=== PATIENT | female | born 1960 | race Caucasian/White ===

== ENCOUNTER 2020-03-30 09:11 | Observation (INO) ==
[2020-03-30 11:04] LABS: Basophils % 0.3 % (0.0-0.8); Eosinophils # 0.1 10*3/uL (0.0-0.87); Eosinophils % 0.5 % (0.00-10.9); Hematocrit 40.4 VOL% (35.7-47.0); Hemoglobin 13.3 GM/DL (12.0-16.0); Immature Granulocytes % 0.3 %; Immature Granulocytes Absolute 0.03 #; Lymphocytes # 1.6 10*3/uL (1.4-4.0); Lymphocytes % 17.9 % (21.3-54.2); Mean Corpuscular HGB Conc 32.9 GM/DL (32-36); Mean Corpuscular Volume 85.8 FL (87-102); Mean Platelet Volume 8.5 FL (9.6-12.0); Monocytes % 4.6 % (1.7-12.7); Neutrophils % 76.4 % (38.7-73.9); Platelet Count 376 T/CUMM (130-400); Red Blood Count 4.71 MC/CUMM (3.8-5.5); Red Cell Distribution Width 12.9 % (9.3-17.3); White Blood Count 9.2 T/CUMM (4-12)
[2020-03-30 11:09] LABS: Bilirubin,Urine Negative (Negative); Blood, Urine Negative (Negative); Glucose,Urine (UA) Negative (Negative); Ketones,Urine 5 mg/dL (Negative); Nitrite,Urine Negative (Negative); Protein,Urine Negative; RBC,Urine <1 /HPF (0-4); Squamous Epithelial Cell,Urine Occasional /HPF (0-10); Urine Appearance CLEAR (Clear); Urine Color Yellow (Yellow); Urine Specific Gravity 1.004 (1.001-1.035); Urine Urobilinogen < 2.0 EU/DL (0.2-1.0)
[2020-03-30 11:38] LABS: Bilirubin,Total 0.5 MG/DL (0.2-1.0); Calcium 8.6 MG/DL (8.5-10.1); Osmolality,Calculated 272.7 MOS/KG (273-304); Total Protein 7.2 G/DL (6.4-8.3)
[2020-03-30] MEDS ORDERED: ONDANSETRON 4 MG/2 ML VIAL IV PRN (13:52)
[2020-03-30] MEDS ORDERED: ACETAMINOPHEN 325 MG TABLET PO PRN (13:52)
[2020-03-30] MEDS ORDERED: DEXTROSE 50% 25 GM/50 ML VIAL IV PRN (13:52)
[2020-03-30] MEDS ORDERED: GLUCAGON 1 MG VIAL IM PRN (13:52)
[2020-03-30 14:39] LABS: PT Patient Result 11.2 SECS (9.8-11.9)
[2020-03-30 16:35] LABS: Hepatitis B Core IgM Quant < 0.05 Index; Hepatitis B Surface Ag Quant < 0.10 Index; Hepatitis B Surface Ag Result Negative (Negative); Hepatitis C Virus Ab Quant 0.03 Index; Hepatitis C Virus Ab Result Negative (Negative)
[2020-03-30 17:34] LABS: Cancer Antigen 19-9 29.6 U/ML (0-37); Carcinoembryonic Antigen < 0.5 NG/ML (0.0-5.0)
[2020-03-31 06:01] LABS: Basophils % 0.3 % (0.0-0.8); Eosinophils # 0.1 10*3/uL (0.0-0.87); Eosinophils % 1.1 % (0.00-10.9); Hematocrit 39.1 VOL% (35.7-47.0); Hemoglobin 12.6 GM/DL (12.0-16.0); Immature Granulocytes % 0.4 %; Immature Granulocytes Absolute 0.04 #; Lymphocytes # 1.7 10*3/uL (1.4-4.0); Lymphocytes % 17.1 % (21.3-54.2); Mean Corpuscular HGB Conc 32.2 GM/DL (32-36); Mean Corpuscular Volume 85.9 FL (87-102); Mean Platelet Volume 8.6 FL (9.6-12.0); Monocytes % 5.3 % (1.7-12.7); Neutrophils % 75.8 % (38.7-73.9); Platelet Count 360 T/CUMM (130-400); Red Blood Count 4.55 MC/CUMM (3.8-5.5); Red Cell Distribution Width 12.8 % (9.3-17.3); White Blood Count 9.9 T/CUMM (4-12)
[2020-03-31 06:25] LABS: Calcium 8.5 MG/DL (8.5-10.1)
[2020-03-31 06:47] LABS: Albumin 2.6 G/DL (3.4-5.0); Bilirubin,Total 0.6 MG/DL (0.2-1.0); Calcium 8.3 MG/DL (8.5-10.1); Risk Ratio 3.84; Thyroid Stimulating Hormone 1.5 uIU/ml (0.358-3.74); Total Protein 6.5 G/DL (6.4-8.3); VLDL CHOLESTEROL 18.8 MG/DL
[2020-03-31] MEDS ORDERED: ALBUMIN 25% 50 GM in PREMIX 1 EACH IV ONE (07:00)
[2020-03-31 10:32] LABS: Neutrophils,Peritoneal Fluid 56 %
[2020-03-31 10:34] LABS: RBC,Peritoneal Fluid 3138 T/CUMM
[2020-03-31] MEDS ORDERED: ENOXAPARIN 40 MG/0.4 ML SYRINGE SUBCUT SCH (16:00)
[2020-04-01 06:05] LABS: Basophils % 0.4 % (0.0-0.8); Eosinophils # 0.1 10*3/uL (0.0-0.87); Eosinophils % 1.5 % (0.00-10.9); Hematocrit 39.7 VOL% (35.7-47.0); Hemoglobin 12.6 GM/DL (12.0-16.0); Immature Granulocytes % 0.4 %; Immature Granulocytes Absolute 0.03 #; Lymphocytes # 1.5 10*3/uL (1.4-4.0); Lymphocytes % 19.4 % (21.3-54.2); Mean Corpuscular HGB Conc 31.7 GM/DL (32-36); Mean Corpuscular Volume 86.5 FL (87-102); Mean Platelet Volume 9.1 FL (9.6-12.0); Monocytes % 7.4 % (1.7-12.7); Neutrophils % 70.9 % (38.7-73.9); Platelet Count 340 T/CUMM (130-400); Red Blood Count 4.59 MC/CUMM (3.8-5.5); Red Cell Distribution Width 12.8 % (9.3-17.3); White Blood Count 7.5 T/CUMM (4-12)
[2020-04-01 06:10] LABS: Calcium 8.7 MG/DL (8.5-10.1); Osmolality,Calculated 272.7 MOS/KG (273-304)
[2020-04-01 07:29] VITALS: BP 96/59
== END 2020-04-01 13:00 | disposition home or self-care (01) ==
LOC: N.EDINP 09:11 → N.ED 09:11 → SUATTDRO 13:52 → N.4E 15:40
PROVIDERS: ADMIT Internal Medicine; ATTEND Emergency Medicine

== ENCOUNTER 2021-08-24 15:00 | Inpatient (IN) ==
[2021-08-24] MEDS ORDERED: diphenhydrAMINE 50 MG/1 ML VIAL IV STA (15:16)
[2021-08-24] MEDS ORDERED: ACETAMINOPHEN 325 MG TABLET PO ONE (15:16)
[2021-08-24] MEDS ORDERED: FAMOTIDINE 20 MG/2 ML VIAL IV STA (15:16)
[2021-08-24] MEDS ORDERED: SODIUM CHLORIDE 0.9% 1,000 ML IV STA (15:16)
[2021-08-24 15:32] LABS: Hematocrit 29.8 VOL% (35.7-47.0); Hemoglobin 10.1 GM/DL (12.0-16.0); Lymphocytes # 0.5 10*3/uL (1.4-4.0); Lymphocytes % 96.2 % (21.3-54.2); Mean Corpuscular HGB Conc 33.9 GM/DL (32-36); Mean Corpuscular Volume 90.9 FL (87-102); Mean Platelet Volume 10.7 FL (9.6-12.0); Neutrophils % 3.8 % (38.7-73.9); Red Blood Count 3.28 MC/CUMM (3.8-5.5); Red Cell Distribution Width 12.5 % (9.3-17.3)
[2021-08-24 15:37] LABS: Platelet Count 13 T/CUMM (130-400); White Blood Count 0.5 T/CUMM (4-12)
[2021-08-24 15:50] LABS: Albumin 2.8 G/DL (3.4-5.0); Bilirubin,Total 0.9 MG/DL (0.20-1.00); Calcium 8.6 MG/DL (8.5-10.1); Osmolality,Calculated 267.4 MOS/KG (273-304); Potassium 3.4 MMOL/L (3.5-5.1); Total Protein 6.6 G/DL (6.4-8.2)
[2021-08-24] MEDS ORDERED: VANCOMYCIN INJ 1,000 MG in SODIUM CHLORIDE 0.9% 250 ML IV STA (16:03)
[2021-08-24] MEDS ORDERED: MEROPENEM 1,000 MG in SODIUM CHLORIDE 0.9% 100 ML IV ONE (16:03)
[2021-08-24] MEDS ORDERED: SODIUM CHLORIDE 0.9% 1,000 ML IV PRN (16:06)
[2021-08-24 16:30] LABS: Atypical Lymphocytes Moderate; Lymphocytes 100 % (20-55); Platelet Estimate Decreased; Total Cells Counted 100
[2021-08-24 16:32] LABS: Anisocytosis Slight
[2021-08-24 16:50] LABS: INR 1.1; PT Patient Result 11.8 SECS (10.5-12.0); Partial Thromboplastin Time 26.8 SECS (23.8-32.1)
[2021-08-24] MEDS ORDERED: GLUCAGON 1 MG VIAL IM PRN (16:59)
[2021-08-24 17:01] LABS: Bilirubin,Urine Moderate mg/dL (Negative); Glucose,Urine (UA) Negative (Negative); Ketones,Urine 80 mg/dL (Negative); Nitrite,Urine Negative (Negative); Protein,Urine 30 mg/dL (Negative); Urine Appearance Clear (Clear); Urine Color Yellow (Yellow); Urine Specific Gravity 1.025 (1.001-1.035); Urine pH 5.5 (4.5-8.0)
[2021-08-24 17:02] LABS: Blood, Urine Negative (Negative); Urine Urobilinogen 0.2 eU/dL (<2.0)
[2021-08-24 17:03] LABS: Bacteria,Urine Occasional /HPF (Few); Hyaline Casts,Urine 7 /LPF (0-3); Mucus,Urine Moderate /LPF (Occasional); Squamous Epithelial Cell,Urine Occasional /HPF (0-10)
[2021-08-24] MEDS ORDERED: DEXTROSE 10% 250 ML BAG IV PRN (17:06)
[2021-08-24] MEDS ORDERED: METOCLOPRAMIDE 10 MG TABLET PO PRN (17:37)
[2021-08-24] MEDS ORDERED: PROMETHAZINE 25 MG TABLET PO PRN (17:37)
[2021-08-24 17:45] LABS: Risk Ratio 2.8; Thyroid Stimulating Hormone 1.65 uIU/ml (0.358-3.74); VLDL Cholesterol 23.2 MG/DL
[2021-08-24] MEDS: LACTATED RINGERS 1,000 ML IV SCH (19:05)
[2021-08-24] MEDS: GABAPENTIN 300 MG CAPSULE PO SCH (21:06)
[2021-08-25] MEDS ORDERED: CEFEPIME 1,000 MG in SODIUM CHLORIDE 0.9% 100 ML IV SCH
[2021-08-25] MEDS: LACTATED RINGERS 1,000 ML IV SCH ×3 (02:56→18:24)
[2021-08-25] MEDS: VANCOMYCIN INJ 1,000 MG in SODIUM CHLORIDE 0.9% 250 ML IV SCH ×2 (04:15→17:54)
[2021-08-25] MEDS: ONDANSETRON 4 MG/2 ML VIAL IV PRN ×2 (04:29→20:04)
[2021-08-25 05:18] LABS: Hematocrit 23.1 VOL% (35.7-47.0); Hemoglobin 7.7 GM/DL (12.0-16.0); Lymphocytes # 0.6 10*3/uL (1.4-4.0); Lymphocytes % 96.9 % (21.3-54.2); Mean Corpuscular HGB Conc 33.3 GM/DL (32-36); Mean Corpuscular Volume 92.4 FL (87-102); Mean Platelet Volume 10.5 FL (9.6-12.0); Monocytes % 1.5 % (1.7-12.7); Neutrophils % 1.6 % (38.7-73.9); Red Cell Distribution Width 12.8 % (9.3-17.3)
[2021-08-25 05:27] LABS: White Blood Count 0.7 T/CUMM (4-12)
[2021-08-25 05:28] LABS: Platelet Count 6 T/CUMM (130-400)
[2021-08-25 05:48] LABS: Hypochromia 1+; Lymphocytes 99 % (20-55); Microcytosis 1+; Platelet Estimate Decreased; Total Cells Counted 100
[2021-08-25 05:48] LABS: Albumin 2.1 G/DL (3.4-5.0); Bilirubin,Total 0.4 MG/DL (0.20-1.00); Calcium 7.2 MG/DL (8.5-10.1); Osmolality,Calculated 276.4 MOS/KG (273-304); Potassium 3.3 MMOL/L (3.5-5.1); Total Protein 4.8 G/DL (6.4-8.2)
[2021-08-25 05:49] LABS: Atypical Lymphocytes Few
[2021-08-25] MEDS ORDERED: PANTOPRAZOLE 40 MG TABLET PO SCH (09:00)
[2021-08-25] MEDS ORDERED: SODIUM CHLORIDE 0.9% 1,000 ML IV PRN (09:10)
[2021-08-25] MEDS: GABAPENTIN 300 MG CAPSULE PO SCH ×2 (09:51→20:59)
[2021-08-25] MEDS: POTASSIUM CHLORIDE 10 MEQ TABLET PO SCH (09:51)
[2021-08-25] MEDS: FILGRASTIM-SNDZ 300 MCG/0.5 ML SYRINGE SUBCUT SCH (11:22)
[2021-08-25] MEDS: ACETAMINOPHEN 325 MG TABLET PO PRN ×2 (12:40→20:59)
[2021-08-25] MEDS: FAMOTIDINE 20 MG TABLET PO SCH ×2 (14:07→20:59)
[2021-08-25] MEDS: diphenhydrAMINE 50 MG/1 ML VIAL IV PRN (14:11)
[2021-08-25] MEDS: DOCUSATE SODIUM 100 MG CAPSULE PO SCH (20:59)
[2021-08-25] MEDS: MEROPENEM 500 MG in SODIUM CHLORIDE 0.9% 100 ML IV SCH (21:59)
[2021-08-26] MEDS: MEROPENEM 500 MG in SODIUM CHLORIDE 0.9% 100 ML IV SCH ×4 (03:58→21:26)
[2021-08-26] MEDS: VANCOMYCIN INJ 1,000 MG in SODIUM CHLORIDE 0.9% 250 ML IV SCH ×2 (04:38→17:17)
[2021-08-26 05:04] LABS: Hematocrit 25.3 VOL% (35.7-47.0); Hemoglobin 8.3 GM/DL (12.0-16.0); Lymphocytes # 1.1 10*3/uL (1.4-4.0); Lymphocytes % 96.4 % (21.3-54.2); Mean Corpuscular HGB Conc 32.8 GM/DL (32-36); Mean Corpuscular Volume 89.4 FL (87-102); Monocytes % 3.6 % (1.7-12.7); Red Blood Count 2.83 MC/CUMM (3.8-5.5); Red Cell Distribution Width 15.1 % (9.3-17.3); White Blood Count 1.1 T/CUMM (4-12)
[2021-08-26 05:08] LABS: PT Patient Result 11.5 SECS (10.5-12.0); Partial Thromboplastin Time 30.5 SECS (23.8-32.1)
[2021-08-26 05:09] LABS: Platelet Count 6 T/CUMM (130-400)
[2021-08-26 05:20] LABS: Albumin 2.1 G/DL (3.4-5.0); Bilirubin,Total 1.3 MG/DL (0.20-1.00); Osmolality,Calculated 273.7 MOS/KG (273-304); Potassium 3.3 MMOL/L (3.5-5.1)
[2021-08-26 05:58] LABS: Eosinophils 2 % (0-10); Lymphocytes 96 % (20-55); Platelet Estimate Decreased; Total Cells Counted 100
[2021-08-26 05:59] LABS: Anisocytosis Slight
[2021-08-26 08:37] LABS: Hematocrit 28.3 VOL% (35.7-47.0); Hemoglobin 9.5 GM/DL (12.0-16.0); Lymphocytes # 1.2 10*3/uL (1.4-4.0); Lymphocytes % 97.5 % (21.3-54.2); Mean Corpuscular HGB Conc 33.6 GM/DL (32-36); Mean Corpuscular Volume 87.9 FL (87-102); Mean Platelet Volume 7.8 FL (9.6-12.0); Monocytes % 1.7 % (1.7-12.7); Neutrophils % 0.8 % (38.7-73.9); Red Blood Count 3.22 MC/CUMM (3.8-5.5); Red Cell Distribution Width 15.1 % (9.3-17.3); White Blood Count 1.2 T/CUMM (4-12)
[2021-08-26 08:42] LABS: Platelet Count 5 T/CUMM (130-400)
[2021-08-26 08:59] LABS: Calcium 7.9 MG/DL (8.5-10.1); Osmolality,Calculated 275.5 MOS/KG (273-304)
[2021-08-26 09:06] LABS: Lymphocytes 99 % (20-55)
[2021-08-26 09:07] LABS: Platelet Estimate Decreased; Total Cells Counted 100
[2021-08-26] MEDS: GABAPENTIN 300 MG CAPSULE PO SCH ×3 (09:28→20:57)
[2021-08-26] MEDS: FAMOTIDINE 20 MG TABLET PO SCH ×3 (09:28→20:48)
[2021-08-26] MEDS: DOCUSATE SODIUM 100 MG CAPSULE PO SCH ×3 (09:28→20:56)
[2021-08-26] MEDS: POTASSIUM CHLORIDE 10 MEQ TABLET PO SCH (09:28)
[2021-08-26] MEDS: ONDANSETRON 4 MG/2 ML VIAL IV PRN ×3 (09:29→19:58)
[2021-08-26] MEDS: FILGRASTIM-SNDZ 300 MCG/0.5 ML SYRINGE SUBCUT SCH (09:29)
[2021-08-26] MEDS: LACTATED RINGERS 1,000 ML IV SCH (10:06)
[2021-08-26] MEDS ORDERED: SODIUM CHLORIDE 0.9% 1,000 ML IV PRN (10:47)
[2021-08-26] MEDS ORDERED: diphenhydrAMINE CAP 25 MG CAPSULE PO PRN (11:01)
[2021-08-26] MEDS: ACETAMINOPHEN 325 MG TABLET PO PRN (11:18)
[2021-08-26] MEDS ORDERED: MORPHINE 2 MG/1 ML SYRINGE IV ONE (21:09)
[2021-08-26] MEDS ORDERED: PROMETHAZINE INJ 12.5 MG in SODIUM CHLORIDE 0.9% 50 ML IV ONE (21:09)
[2021-08-27] MEDS: LACTATED RINGERS 1,000 ML IV SCH (03:15)
[2021-08-27] MEDS: MEROPENEM 500 MG in SODIUM CHLORIDE 0.9% 100 ML IV SCH ×4 (03:28→21:05)
[2021-08-27] MEDS: VANCOMYCIN INJ 1,000 MG in SODIUM CHLORIDE 0.9% 250 ML IV SCH (04:50)
[2021-08-27 05:37] LABS: Eosinophils % 1.2 % (0.00-10.9); Hematocrit 24.1 VOL% (35.7-47.0); Hemoglobin 8.2 GM/DL (12.0-16.0); Lymphocytes # 0.8 10*3/uL (1.4-4.0); Lymphocytes % 95.1 % (21.3-54.2); Mean Platelet Volume 10.2 FL (9.6-12.0); Monocytes % 2.5 % (1.7-12.7); Neutrophils % 1.2 % (38.7-73.9); Red Blood Count 2.74 MC/CUMM (3.8-5.5); Red Cell Distribution Width 14.6 % (9.3-17.3)
[2021-08-27 05:47] LABS: White Blood Count 0.8 T/CUMM (4-12)
[2021-08-27 05:48] LABS: Platelet Count 23 T/CUMM (130-400)
[2021-08-27 05:53] LABS: Albumin 2.1 G/DL (3.4-5.0); Bilirubin,Total 0.8 MG/DL (0.20-1.00); Calcium 7.6 MG/DL (8.5-10.1); Osmolality,Calculated 273.5 MOS/KG (273-304); Potassium 3.4 MMOL/L (3.5-5.1)
[2021-08-27 06:18] LABS: Lymphocytes 100 % (20-55); Platelet Estimate Decreased; Total Cells Counted 100
[2021-08-27 06:19] LABS: Anisocytosis Slight
[2021-08-27] MEDS: DOCUSATE SODIUM 100 MG CAPSULE PO SCH ×2 (09:11→21:04)
[2021-08-27] MEDS: FILGRASTIM-SNDZ 300 MCG/0.5 ML SYRINGE SUBCUT SCH (09:11)
[2021-08-27] MEDS: ONDANSETRON 4 MG/2 ML VIAL IV PRN ×3 (09:11→23:23)
[2021-08-27] MEDS: GABAPENTIN 300 MG CAPSULE PO SCH ×2 (09:12→21:04)
[2021-08-27] MEDS: POTASSIUM CHLORIDE 10 MEQ TABLET PO SCH (09:12)
[2021-08-27] MEDS: FAMOTIDINE 20 MG TABLET PO SCH ×2 (09:12→21:04)
[2021-08-27] MEDS ORDERED: MAGNESIUM SULF RIDER 2 GM/50 ML PREMIX IV ONE (16:00)
[2021-08-27] MEDS ORDERED: POTASSIUM CHLORIDE 20 MEQ TABLET PO ONE (16:00)
[2021-08-28] MEDS: LACTATED RINGERS 1,000 ML IV SCH (02:07)
[2021-08-28] MEDS ORDERED: PROMETHAZINE INJ 12.5 MG in SODIUM CHLORIDE 0.9% 50 ML IV ONE (02:18)
[2021-08-28] MEDS: MEROPENEM 500 MG in SODIUM CHLORIDE 0.9% 100 ML IV SCH ×4 (04:02→22:01)
[2021-08-28 04:56] LABS: Eosinophils % 1.1 % (0.00-10.9); Hematocrit 24.2 VOL% (35.7-47.0); Hemoglobin 8.1 GM/DL (12.0-16.0); Lymphocytes # 0.7 10*3/uL (1.4-4.0); Lymphocytes % 79.5 % (21.3-54.2); Mean Corpuscular HGB Conc 33.5 GM/DL (32-36); Mean Corpuscular Volume 88.6 FL (87-102); Mean Platelet Volume 10.6 FL (9.6-12.0); Monocytes # 0.1 10*3/uL (0.11-0.8); Monocytes % 13.6 % (1.7-12.7); Neutrophils % 5.8 % (38.7-73.9); Red Blood Count 2.73 MC/CUMM (3.8-5.5); Red Cell Distribution Width 14.6 % (9.3-17.3)
[2021-08-28 04:59] LABS: Platelet Count 19 T/CUMM (130-400); White Blood Count 0.9 T/CUMM (4-12)
[2021-08-28] MEDS ORDERED: SODIUM CHLORIDE 0.9% 1,000 ML IV PRN (06:19)
[2021-08-28 07:42] LABS: Bilirubin,Total 0.8 MG/DL (0.20-1.00); Calcium 7.8 MG/DL (8.5-10.1); Osmolality,Calculated 263.4 MOS/KG (273-304); Potassium 3.4 MMOL/L (3.5-5.1)
[2021-08-28 08:09] LABS: Atypical Lymphocytes Few; Lymphocytes 94 % (20-55); Platelet Estimate Decreased; Schistocytes Slight; Total Cells Counted 100
[2021-08-28] MEDS: GABAPENTIN 300 MG CAPSULE PO SCH ×3 (10:54→22:03)
[2021-08-28] MEDS: POTASSIUM CHLORIDE 20 MEQ TABLET PO SCH ×2 (10:54→11:01)
[2021-08-28] MEDS: DOCUSATE SODIUM 100 MG CAPSULE PO SCH ×4 (10:54→22:02)
[2021-08-28] MEDS: FAMOTIDINE 20 MG TABLET PO SCH ×2 (10:55→22:03)
[2021-08-28] MEDS: FILGRASTIM-SNDZ 300 MCG/0.5 ML SYRINGE SUBCUT SCH ×2 (11:23→17:17)
[2021-08-28] MEDS: PROMETHAZINE INJ 12.5 MG in SODIUM CHLORIDE 0.9% 50 ML IV PRN (13:39)
[2021-08-28] MEDS: ONDANSETRON 4 MG/2 ML VIAL IV PRN (22:02)
[2021-08-29] MEDS: MEROPENEM 500 MG in SODIUM CHLORIDE 0.9% 100 ML IV SCH ×4 (04:35→21:07)
[2021-08-29 05:34] LABS: Basophils % 0.4 % (0.0-0.8); Eosinophils % 0.8 % (0.00-10.9); Hematocrit 25.8 VOL% (35.7-47.0); Hemoglobin 8.7 GM/DL (12.0-16.0); Immature Granulocytes % 1.2 %; Immature Granulocytes Absolute 0.03 #; Lymphocytes # 1.3 10*3/uL (1.4-4.0); Lymphocytes % 51.4 % (21.3-54.2); Mean Corpuscular HGB Conc 33.7 GM/DL (32-36); Mean Corpuscular Volume 88.1 FL (87-102); Mean Platelet Volume 10.9 FL (9.6-12.0); Monocytes # 0.4 10*3/uL (0.11-0.8); Monocytes % 16.9 % (1.7-12.7); Neutrophils % 29.3 % (38.7-73.9); Red Blood Count 2.93 MC/CUMM (3.8-5.5); Red Cell Distribution Width 14.6 % (9.3-17.3); White Blood Count 2.4 T/CUMM (4-12)
[2021-08-29 05:41] LABS: Platelet Count 32 T/CUMM (130-400)
[2021-08-29 06:43] LABS: Calcium 8.1 MG/DL (8.5-10.1); Osmolality,Calculated 269.8 MOS/KG (273-304); Potassium 3.2 MMOL/L (3.5-5.1)
[2021-08-29] MEDS ORDERED: POTASSIUM CHLORIDE 20 MEQ TABLET PO ONE (07:12)
[2021-08-29] MEDS ORDERED: MAGNESIUM SULF RIDER 2 GM/50 ML PREMIX IV ONE (07:12)
[2021-08-29] MEDS: ONDANSETRON 4 MG/2 ML VIAL IV PRN (08:33)
[2021-08-29 09:25] LABS: Atypical Lymphocytes Few; Band Neutrophils 1 % (0-10); Lymphocytes 56 % (20-55); Metamyelocytes 1 %; Nucleated Red Blood Cells 1 (0-5); Promyelocytes 1 %; Reactive Lymphocytes Few; Total Cells Counted 100
[2021-08-29 09:26] LABS: Anisocytosis 1+; Ovalocytes Few; Platelet Estimate Decreased
[2021-08-29] MEDS: FAMOTIDINE 20 MG TABLET PO SCH ×2 (10:12→21:06)
[2021-08-29] MEDS: POTASSIUM CHLORIDE 20 MEQ TABLET PO SCH (10:12)
[2021-08-29] MEDS: GABAPENTIN 300 MG CAPSULE PO SCH ×2 (10:12→21:06)
[2021-08-29] MEDS: PROMETHAZINE INJ 12.5 MG in SODIUM CHLORIDE 0.9% 50 ML IV PRN ×2 (10:21→17:55)
[2021-08-29] MEDS: DOCUSATE SODIUM 100 MG CAPSULE PO SCH ×2 (11:12→21:06)
[2021-08-29] MEDS: FILGRASTIM-SNDZ 300 MCG/0.5 ML SYRINGE SUBCUT SCH (12:50)
[2021-08-30] MEDS: ONDANSETRON 4 MG/2 ML VIAL IV PRN ×2 (02:21→15:48)
[2021-08-30 04:16] LABS: Basophils % 0.6 % (0.0-0.8); Eosinophils % 0.5 % (0.00-10.9); Hematocrit 27.3 VOL% (35.7-47.0); Hemoglobin 9.1 GM/DL (12.0-16.0); Immature Granulocytes % 11.1 %; Immature Granulocytes Absolute 0.73 #; Lymphocytes # 1.8 10*3/uL (1.4-4.0); Lymphocytes % 26.7 % (21.3-54.2); Mean Corpuscular HGB Conc 33.3 GM/DL (32-36); Mean Corpuscular Volume 88.9 FL (87-102); Mean Platelet Volume 9.6 FL (9.6-12.0); Monocytes # 1.3 10*3/uL (0.11-0.8); Monocytes % 19.8 % (1.7-12.7); NRBC # 0.02 10*3/uL; Neutrophils % 41.3 % (38.7-73.9); Platelet Count 76 T/CUMM (130-400); Red Blood Count 3.07 MC/CUMM (3.8-5.5); Red Cell Distribution Width 14.6 % (9.3-17.3); White Blood Count 6.6 T/CUMM (4-12)
[2021-08-30 04:31] LABS: Calcium 8.3 MG/DL (8.5-10.1); Potassium 3.3 MMOL/L (3.5-5.1)
[2021-08-30] MEDS: MEROPENEM 500 MG in SODIUM CHLORIDE 0.9% 100 ML IV SCH ×4 (04:37→21:12)
[2021-08-30 05:09] LABS: Atypical Lymphocytes Few; Band Neutrophils 3 % (0-10); Eosinophils 2 % (0-10); Lymphocytes 32 % (20-55); Metamyelocytes 1 %; Total Cells Counted 100
[2021-08-30 05:11] LABS: Microcytosis 1+; Platelet Estimate Decreased; Polychromasia Slight
[2021-08-30 05:12] LABS: Anisocytosis 1+
[2021-08-30] MEDS ORDERED: POTASSIUM CHLORIDE 20 MEQ TABLET PO ONE (08:11)
[2021-08-30] MEDS: SODIUM CHLORIDE 0.45% 1,000 ML IV SCH (10:12)
[2021-08-30] MEDS: POTASSIUM CHLORIDE 20 MEQ TABLET PO SCH (11:13)
[2021-08-30] MEDS: DOCUSATE SODIUM 100 MG CAPSULE PO SCH ×2 (11:13→21:11)
[2021-08-30] MEDS: GABAPENTIN 300 MG CAPSULE PO SCH ×2 (11:13→21:11)
[2021-08-30] MEDS: FAMOTIDINE 20 MG TABLET PO SCH ×2 (11:13→21:12)
[2021-08-30] MEDS: PROMETHAZINE INJ 12.5 MG in SODIUM CHLORIDE 0.9% 50 ML IV PRN ×2 (12:47→18:23)
[2021-08-31] MEDS: PROMETHAZINE INJ 12.5 MG in SODIUM CHLORIDE 0.9% 50 ML IV PRN (00:38)
[2021-08-31 04:29] LABS: Basophils % 0.1 % (0.0-0.8); Eosinophils % 0.4 % (0.00-10.9); Hematocrit 27.8 VOL% (35.7-47.0); Hemoglobin 9.3 GM/DL (12.0-16.0); Immature Granulocytes % 12.2 %; Immature Granulocytes Absolute 1.27 #; Lymphocytes % 19.1 % (21.3-54.2); Mean Corpuscular HGB Conc 33.5 GM/DL (32-36); Mean Corpuscular Volume 89.4 FL (87-102); Mean Platelet Volume 10.1 FL (9.6-12.0); Monocytes # 1.8 10*3/uL (0.11-0.8); Monocytes % 17.3 % (1.7-12.7); NRBC # 0.06 10*3/uL; Neutrophils % 50.9 % (38.7-73.9); Platelet Count 107 T/CUMM (130-400); Red Blood Count 3.11 MC/CUMM (3.8-5.5); Red Cell Distribution Width 14.9 % (9.3-17.3); White Blood Count 10.4 T/CUMM (4-12)
[2021-08-31 04:58] LABS: Albumin 2.4 G/DL (3.4-5.0); Bilirubin,Total 0.6 MG/DL (0.20-1.00); Calcium 8.5 MG/DL (8.5-10.1); Osmolality,Calculated 270.8 MOS/KG (273-304); Potassium 3.2 MMOL/L (3.5-5.1); Total Protein 5.7 G/DL (6.4-8.2)
[2021-08-31] MEDS: MEROPENEM 500 MG in SODIUM CHLORIDE 0.9% 100 ML IV SCH ×4 (05:02→22:05)
[2021-08-31 05:03] LABS: Eosinophils 1 % (0-10); Lymphocytes 17 % (20-55); Total Cells Counted 100
[2021-08-31 05:04] LABS: Anisocytosis 1+; Platelet Estimate Adequate; Polychromasia 1+
[2021-08-31] MEDS: SODIUM CHLORIDE 0.45% 1,000 ML IV SCH (05:04)
[2021-08-31] MEDS ORDERED: PROMETHAZINE 25 MG/1 ML VIAL IM PRN (09:44)
[2021-08-31] MEDS ORDERED: FLUCONAZOLE 150 MG TABLET PO ONE (10:00)
[2021-08-31] MEDS: ONDANSETRON 4 MG/2 ML VIAL IV PRN ×3 (10:24→19:01)
[2021-08-31] MEDS: POTASSIUM CHLORIDE RIDER 10 MEQ/100 ML PREMIX IV SCH ×4 (10:27→15:55)
[2021-08-31] MEDS: DOCUSATE SODIUM 100 MG CAPSULE PO SCH ×2 (10:28→22:03)
[2021-08-31] MEDS: POTASSIUM CHLORIDE 20 MEQ TABLET PO SCH (10:28)
[2021-08-31] MEDS: GABAPENTIN 300 MG CAPSULE PO SCH ×2 (10:28→22:04)
[2021-08-31] MEDS: FAMOTIDINE 20 MG TABLET PO SCH ×2 (10:29→22:04)
[2021-08-31] MEDS: FLUCONAZOLE INJ 200 MG/100 ML PREMIX IV SCH (12:05)
[2021-09-01] MEDS: ONDANSETRON 4 MG/2 ML VIAL IV PRN ×2 (00:58→21:26)
[2021-09-01 04:45] LABS: Basophils % 0.1 % (0.0-0.8); Eosinophils # 0.1 10*3/uL (0.0-0.87); Eosinophils % 0.4 % (0.00-10.9); Hematocrit 27.7 VOL% (35.7-47.0); Hemoglobin 8.8 GM/DL (12.0-16.0); Immature Granulocytes % 14.1 %; Immature Granulocytes Absolute 1.95 #; Lymphocytes # 3.1 10*3/uL (1.4-4.0); Lymphocytes % 22.1 % (21.3-54.2); Mean Corpuscular HGB Conc 31.8 GM/DL (32-36); Mean Platelet Volume 9.8 FL (9.6-12.0); Monocytes # 2.3 10*3/uL (0.11-0.8); Monocytes % 16.9 % (1.7-12.7); NRBC # 0.06 10*3/uL; Neutrophils % 46.4 % (38.7-73.9); Platelet Count 129 T/CUMM (130-400); Red Blood Count 3.01 MC/CUMM (3.8-5.5); Red Cell Distribution Width 15.1 % (9.3-17.3); White Blood Count 13.9 T/CUMM (4-12)
[2021-09-01 05:01] LABS: Calcium 7.8 MG/DL (8.5-10.1); Osmolality,Calculated 271.8 MOS/KG (273-304); Potassium 3.6 MMOL/L (3.5-5.1)
[2021-09-01 05:29] LABS: Atypical Lymphocytes Few; Band Neutrophils 1 % (0-10); Hypochromia 1+; Lymphocytes 33 % (20-55); Microcytosis 1+; Myelocytes 1 %; Promyelocytes 1 %; Total Cells Counted 100
[2021-09-01 05:30] LABS: Polychromasia Slight
[2021-09-01] MEDS: MEROPENEM 500 MG in SODIUM CHLORIDE 0.9% 100 ML IV SCH (06:22)
[2021-09-01] MEDS: SODIUM CHLORIDE 0.45% 1,000 ML IV SCH ×2 (06:23→21:00)
[2021-09-01] MEDS: PROMETHAZINE INJ 25 MG in SODIUM CHLORIDE 0.9% 50 ML IV PRN ×3 (09:57→22:10)
[2021-09-01] MEDS: POTASSIUM CHLORIDE 20 MEQ TABLET PO SCH (09:59)
[2021-09-01] MEDS: DOCUSATE SODIUM 100 MG CAPSULE PO SCH ×2 (09:59→20:36)
[2021-09-01] MEDS: GABAPENTIN 300 MG CAPSULE PO SCH ×2 (10:00→20:36)
[2021-09-01] MEDS: FAMOTIDINE 20 MG TABLET PO SCH ×2 (10:00→20:36)
[2021-09-01] MEDS: METOCLOPRAMIDE 10 MG/2 ML VIAL IV SCH ×3 (10:27→21:26)
[2021-09-01] MEDS: FLUCONAZOLE INJ 200 MG/100 ML PREMIX IV SCH (11:31)
[2021-09-01] MEDS: MULTIVITAMIN INJ 10 ML in AMINO ACIDS/DEXT/LYTES 5-15% 2,000 ML IV SCH ×3 (15:21→17:06)
[2021-09-01] MEDS: FAT EMULSION 20% 250 ML IV SCH (15:30)
[2021-09-01] MEDS ORDERED: DEXTROSE 10% 1,000 ML IV PRN (17:00)
[2021-09-02] MEDS: ONDANSETRON 4 MG/2 ML VIAL IV PRN ×3 (04:06→18:44)
[2021-09-02] MEDS: METOCLOPRAMIDE 10 MG/2 ML VIAL IV SCH ×4 (04:06→22:52)
[2021-09-02] MEDS: PROMETHAZINE INJ 25 MG in SODIUM CHLORIDE 0.9% 50 ML IV PRN ×3 (04:25→22:37)
[2021-09-02 05:20] LABS: Calcium 8.6 MG/DL (8.5-10.1); Osmolality,Calculated 276.8 MOS/KG (273-304); Phosphorous 2.6 MG/DL (2.5-4.9); Potassium 3.2 MMOL/L (3.5-5.1)
[2021-09-02] MEDS ORDERED: MAGNESIUM SULF RIDER 2 GM/50 ML PREMIX IV ONE (07:51)
[2021-09-02] MEDS ORDERED: POTASSIUM CHLORIDE 20 MEQ TABLET PO SCH (08:30)
[2021-09-02] MEDS: GABAPENTIN 300 MG CAPSULE PO SCH ×2 (09:15→22:51)
[2021-09-02] MEDS: DOCUSATE SODIUM 100 MG CAPSULE PO SCH ×2 (09:15→22:51)
[2021-09-02] MEDS: POTASSIUM CHLORIDE 20 MEQ TABLET PO SCH (09:15)
[2021-09-02] MEDS: FAMOTIDINE 20 MG TABLET PO SCH ×2 (09:15→22:51)
[2021-09-02] MEDS ORDERED: INSULIN REGULAR 100 UNIT/ML SUBCUT PRN (12:00)
[2021-09-02] MEDS: FLUCONAZOLE INJ 200 MG/100 ML PREMIX IV SCH (13:20)
[2021-09-02] MEDS ORDERED: MANGANESE IV SCH (17:00)
[2021-09-02] MEDS ORDERED: SELENIUM IV SCH (17:00)
[2021-09-02] MEDS ORDERED: MULTIVITAMIN INJ 10 ML in AMINO ACIDS/DEXT/LYTES 5-15% 2,000 ML IV SCH (17:00)
[2021-09-02] MEDS ORDERED: [UNRECOGNIZED DRUG - OTHER] IV SCH (17:00)
[2021-09-02] MEDS ORDERED: ZINC IV SCH (17:00)
[2021-09-02] MEDS ORDERED: MULTIVITAMIN IV SCH (17:00)
[2021-09-02] MEDS ORDERED: COPPER IV SCH (17:00)
[2021-09-02] MEDS: MULTIVITAMIN INJ 10 ML in AMINO ACIDS/DEXT/LYTES 5-15% 2,000 ML IV SCH (18:25)
[2021-09-02] MEDS: FAT EMULSION 20% 250 ML IV SCH (18:32)
[2021-09-03] MEDS: SODIUM CHLORIDE 0.45% 1,000 ML IV SCH ×2 (04:30→12:08)
[2021-09-03] MEDS: METOCLOPRAMIDE 10 MG/2 ML VIAL IV SCH ×4 (04:30→22:09)
[2021-09-03] MEDS: ONDANSETRON 4 MG/2 ML VIAL IV PRN (04:35)
[2021-09-03 05:19] LABS: Bilirubin,Total < 0.39 MG/DL (0.20-1.00); Blood Urea Nitrogen 16 MG/DL (7-18); Calcium 8.1 MG/DL (8.5-10.1); Carbon Dioxide 36 MMOL/L (21-32); Chloride 94 MMOL/L (98-107); Estimated Glom Filtration Rate 88 ML/MIN; Glucose 129 MG/DL (74-106); Sodium 136 MMOL/L (136-145)
[2021-09-03] MEDS: PROMETHAZINE INJ 25 MG in SODIUM CHLORIDE 0.9% 50 ML IV PRN (09:57)
[2021-09-03] MEDS: POTASSIUM CHLORIDE RIDER 10 MEQ/100 ML PREMIX IV SCH ×5 (10:00→15:23)
[2021-09-03] MEDS: FLUCONAZOLE INJ 200 MG/100 ML PREMIX IV SCH (10:03)
[2021-09-03] MEDS: DOCUSATE SODIUM 100 MG CAPSULE PO SCH ×2 (11:03→22:25)
[2021-09-03] MEDS: POTASSIUM CHLORIDE 20 MEQ TABLET PO SCH (11:04)
[2021-09-03] MEDS: GABAPENTIN 300 MG CAPSULE PO SCH ×2 (11:04→22:35)
[2021-09-03] MEDS: FAMOTIDINE 20 MG TABLET PO SCH ×2 (11:04→22:26)
[2021-09-03] MEDS: ONDANSETRON 4 MG/2 ML VIAL IV SCH ×2 (11:13→16:45)
[2021-09-03] MEDS: PROMETHAZINE 6.25 MG/5 ML UDCUP PO SCH ×2 (15:15→22:26)
[2021-09-03] MEDS: FAT EMULSION 20% 250 ML IV SCH (15:25)
[2021-09-03] MEDS: COPPER IV SCH (18:09)
[2021-09-03] MEDS: SELENIUM IV SCH (18:09)
[2021-09-03] MEDS: MANGANESE IV SCH (18:09)
[2021-09-03] MEDS: ZINC IV SCH (18:09)
[2021-09-03] MEDS: [UNRECOGNIZED DRUG - OTHER] IV SCH (18:09)
[2021-09-03] MEDS: MULTIVITAMIN IV SCH (18:09)
[2021-09-04] MEDS: METOCLOPRAMIDE 10 MG/2 ML VIAL IV SCH ×4 (03:45→21:26)
[2021-09-04] MEDS: PROMETHAZINE INJ 25 MG in SODIUM CHLORIDE 0.9% 50 ML IV PRN ×2 (03:45→17:49)
[2021-09-04 05:34] LABS: Basophils % 0.3 % (0.0-0.8); Eosinophils # 0.1 10*3/uL (0.0-0.87); Eosinophils % 0.6 % (0.00-10.9); Hematocrit 26.5 VOL% (35.7-47.0); Hemoglobin 8.4 GM/DL (12.0-16.0); Immature Granulocytes % 20.7 %; Immature Granulocytes Absolute 2.34 #; Lymphocytes # 2.8 10*3/uL (1.4-4.0); Lymphocytes % 24.7 % (21.3-54.2); Mean Corpuscular HGB Conc 31.7 GM/DL (32-36); Mean Corpuscular Volume 93.3 FL (87-102); Mean Platelet Volume 9.6 FL (9.6-12.0); Monocytes # 2.1 10*3/uL (0.11-0.8); Monocytes % 18.9 % (1.7-12.7); Neutrophils % 34.8 % (38.7-73.9); Platelet Count 228 T/CUMM (130-400); Red Blood Count 2.84 MC/CUMM (3.8-5.5); Red Cell Distribution Width 15.4 % (9.3-17.3); White Blood Count 11.3 T/CUMM (4-12)
[2021-09-04 05:52] LABS: Alanine Aminotransferase 61 U/L (13-56); Albumin 2.1 G/DL (3.4-5.0); Alkaline Phosphatase 98 U/L (45-117); Aspartate Amino Transferase 104 U/L (0-37); Bilirubin,Total < 0.39 MG/DL (0.20-1.00); Blood Urea Nitrogen 15 MG/DL (7-18); Calcium 8.1 MG/DL (8.5-10.1); Carbon Dioxide 33 MMOL/L (21-32); Chloride 100 MMOL/L (98-107); Estimated Glom Filtration Rate 88 ML/MIN; Glucose 105 MG/DL (74-106); Potassium 3.6 MMOL/L (3.5-5.1); Sodium 136 MMOL/L (136-145); Total Protein 5.4 G/DL (6.4-8.2)
[2021-09-04 05:53] LABS: Band Neutrophils 4 % (0-10); Lymphocytes 29 % (20-55); Platelet Estimate Adequate; Total Cells Counted 100
[2021-09-04 05:54] LABS: Atypical Lymphocytes Few; Hypochromia 1+; Microcytosis 1+
[2021-09-04 06:01] LABS: Calcium 7.8 MG/DL (8.5-10.1); Osmolality,Calculated 278.5 MOS/KG (273-304); Phosphorous 3.7 MG/DL (2.5-4.9); Potassium 3.7 MMOL/L (3.5-5.1)
[2021-09-04] MEDS: ONDANSETRON 4 MG/2 ML VIAL IV SCH ×3 (10:34→15:32)
[2021-09-04] MEDS: FLUCONAZOLE INJ 200 MG/100 ML PREMIX IV SCH (10:38)
[2021-09-04] MEDS: POTASSIUM CHLORIDE 20 MEQ TABLET PO SCH (10:40)
[2021-09-04] MEDS: DOCUSATE SODIUM 100 MG CAPSULE PO SCH ×2 (10:41→22:24)
[2021-09-04] MEDS: GABAPENTIN 300 MG CAPSULE PO SCH ×2 (10:41→22:24)
[2021-09-04] MEDS: PROMETHAZINE 6.25 MG/5 ML UDCUP PO SCH ×2 (10:42→15:19)
[2021-09-04] MEDS: FAMOTIDINE 20 MG TABLET PO SCH ×2 (10:42→22:25)
[2021-09-04] MEDS: FAT EMULSION 20% 250 ML IV SCH (15:39)
[2021-09-04] MEDS: ZINC IV SCH (17:49)
[2021-09-04] MEDS: [UNRECOGNIZED DRUG - OTHER] IV SCH (17:49)
[2021-09-04] MEDS: MULTIVITAMIN IV SCH (17:49)
[2021-09-04] MEDS: COPPER IV SCH (17:49)
[2021-09-04] MEDS: SELENIUM IV SCH (17:49)
[2021-09-04] MEDS: MANGANESE IV SCH (17:49)
[2021-09-04] MEDS: SODIUM CHLORIDE 0.45% 1,000 ML IV SCH (18:41)
[2021-09-05] MEDS: PROMETHAZINE INJ 25 MG in SODIUM CHLORIDE 0.9% 50 ML IV PRN ×4 (01:36→18:05)
[2021-09-05] MEDS: METOCLOPRAMIDE 10 MG/2 ML VIAL IV SCH ×4 (03:55→20:55)
[2021-09-05 05:37] LABS: Basophils # 0.1 10*3/uL (0.0-0.2); Basophils % 0.3 % (0.0-0.8); Eosinophils # 0.1 10*3/uL (0.0-0.87); Eosinophils % 0.3 % (0.00-10.9); Hematocrit 29.5 VOL% (35.7-47.0); Hemoglobin 9.2 GM/DL (12.0-16.0); Immature Granulocytes Absolute 2.33 #; Lymphocytes % 20.8 % (21.3-54.2); Mean Corpuscular HGB Conc 31.2 GM/DL (32-36); Mean Corpuscular Volume 93.7 FL (87-102); Mean Platelet Volume 9.8 FL (9.6-12.0); Monocytes # 2.8 10*3/uL (0.11-0.8); NRBC # 0.06 10*3/uL; Neutrophils % 43.6 % (38.7-73.9); Platelet Count 322 T/CUMM (130-400); Red Blood Count 3.15 MC/CUMM (3.8-5.5); Red Cell Distribution Width 16.4 % (9.3-17.3); White Blood Count 14.6 T/CUMM (4-12)
[2021-09-05 06:02] LABS: Band Neutrophils 5 % (0-10); Hypochromia 1+; Lymphocytes 22 % (20-55); Microcytosis 1+; Myelocytes 2 %; Nucleated Red Blood Cells 1 (0-5); Platelet Estimate Adequate; Total Cells Counted 100
[2021-09-05] MEDS: ONDANSETRON 4 MG/2 ML VIAL IV SCH ×3 (07:36→15:43)
[2021-09-05 07:37] LABS: Alanine Aminotransferase 70 U/L (13-56); Albumin 2.4 G/DL (3.4-5.0); Alkaline Phosphatase 118 U/L (45-117); Aspartate Amino Transferase 105 U/L (0-37); Bilirubin,Total < 0.39 MG/DL (0.20-1.00); Blood Urea Nitrogen 16 MG/DL (7-18); Calcium 8.5 MG/DL (8.5-10.1); Carbon Dioxide 33 MMOL/L (21-32); Chloride 97 MMOL/L (98-107); Estimated Glom Filtration Rate 88 ML/MIN; Glucose 119 MG/DL (74-106); Osmolality,Calculated 271.1 MOS/KG (273-304); Sodium 135 MMOL/L (136-145); Total Protein 6.3 G/DL (6.4-8.2)
[2021-09-05] MEDS: FLUCONAZOLE INJ 200 MG/100 ML PREMIX IV SCH (10:35)
[2021-09-05] MEDS: DOCUSATE SODIUM 100 MG CAPSULE PO SCH (11:25)
[2021-09-05] MEDS: POTASSIUM CHLORIDE 20 MEQ TABLET PO SCH (11:26)
[2021-09-05] MEDS: GABAPENTIN 300 MG CAPSULE PO SCH (11:26)
[2021-09-05] MEDS: FAMOTIDINE 20 MG TABLET PO SCH (11:26)
[2021-09-05] MEDS: FAT EMULSION 20% 250 ML IV SCH (15:42)
[2021-09-05] MEDS: ZINC IV SCH (17:52)
[2021-09-05] MEDS: [UNRECOGNIZED DRUG - OTHER] IV SCH (17:52)
[2021-09-05] MEDS: COPPER IV SCH (17:52)
[2021-09-05] MEDS: MULTIVITAMIN IV SCH (17:52)
[2021-09-05] MEDS: SELENIUM IV SCH (17:52)
[2021-09-05] MEDS: MANGANESE IV SCH (17:52)
[2021-09-05] MEDS: SODIUM CHLORIDE 0.45% 1,000 ML IV SCH (18:04)
[2021-09-06] MEDS: PROMETHAZINE INJ 25 MG in SODIUM CHLORIDE 0.9% 50 ML IV PRN (03:04)
[2021-09-06] MEDS: DOCUSATE SODIUM 100 MG CAPSULE PO SCH ×3 (03:50→21:10)
[2021-09-06] MEDS: GABAPENTIN 300 MG CAPSULE PO SCH ×3 (03:50→21:10)
[2021-09-06] MEDS: FAMOTIDINE 20 MG TABLET PO SCH ×2 (03:50→10:10)
[2021-09-06 03:55] LABS: Basophils # 0.2 10*3/uL (0.0-0.2); Basophils % 1.1 % (0.0-0.8); Eosinophils # 0.1 10*3/uL (0.0-0.87); Eosinophils % 0.5 % (0.00-10.9); Hematocrit 29.3 VOL% (35.7-47.0); Hemoglobin 9.5 GM/DL (12.0-16.0); Immature Granulocytes % 12.6 %; Immature Granulocytes Absolute 1.75 #; Lymphocytes # 2.4 10*3/uL (1.4-4.0); Mean Corpuscular HGB Conc 32.4 GM/DL (32-36); Mean Platelet Volume 9.8 FL (9.6-12.0); Monocytes # 2.3 10*3/uL (0.11-0.8); Monocytes % 16.2 % (1.7-12.7); NRBC # 0.05 10*3/uL; Neutrophils % 52.6 % (38.7-73.9); Platelet Count 442 T/CUMM (130-400); Red Blood Count 3.15 MC/CUMM (3.8-5.5); White Blood Count 13.9 T/CUMM (4-12)
[2021-09-06] MEDS: METOCLOPRAMIDE 10 MG/2 ML VIAL IV SCH ×5 (03:58→21:31)
[2021-09-06 04:15] LABS: Band Neutrophils 1 % (0-10); Eosinophils 1 % (0-10); Hypochromia 1+; Lymphocytes 15 % (20-55); Microcytosis 1+; Platelet Estimate Adequate; Total Cells Counted 100
[2021-09-06 04:20] LABS: Phosphorous 4.4 MG/DL (2.5-4.9)
[2021-09-06 04:23] LABS: Alanine Aminotransferase 99 U/L (13-56); Albumin 2.4 G/DL (3.4-5.0); Alkaline Phosphatase 132 U/L (45-117); Aspartate Amino Transferase 156 U/L (0-37); Bilirubin,Total < 0.39 MG/DL (0.20-1.00); Blood Urea Nitrogen 18 MG/DL (7-18); Calcium 8.2 MG/DL (8.5-10.1); Carbon Dioxide 32 MMOL/L (21-32); Chloride 97 MMOL/L (98-107); Estimated Glom Filtration Rate 84 ML/MIN; Glucose 125 MG/DL (74-106); Osmolality,Calculated 270.2 MOS/KG (273-304); Potassium 4.3 MMOL/L (3.5-5.1); Sodium 134 MMOL/L (136-145); Total Protein 6.6 G/DL (6.4-8.2)
[2021-09-06] MEDS: ONDANSETRON 4 MG/2 ML VIAL IV SCH ×3 (07:40→16:27)
[2021-09-06] MEDS: POTASSIUM CHLORIDE 20 MEQ TABLET PO SCH (10:10)
[2021-09-06] MEDS: FLUCONAZOLE INJ 200 MG/100 ML PREMIX IV SCH (11:18)
[2021-09-06] MEDS: [UNRECOGNIZED DRUG - OTHER] IV SCH (18:23)
[2021-09-06] MEDS: SELENIUM IV SCH (18:23)
[2021-09-06] MEDS: MULTIVITAMIN IV SCH (18:23)
[2021-09-06] MEDS: COPPER IV SCH (18:23)
[2021-09-06] MEDS: MANGANESE IV SCH (18:23)
[2021-09-06] MEDS: ZINC IV SCH (18:23)
[2021-09-06] MEDS: FAT EMULSION 20% 250 ML IV SCH (18:25)
[2021-09-06] MEDS: PANTOPRAZOLE 40 MG VIAL IV SCH (21:31)
[2021-09-06] MEDS: diphenhydrAMINE 50 MG/1 ML VIAL IV PRN (21:52)
[2021-09-07] MEDS: METOCLOPRAMIDE 10 MG/2 ML VIAL IV SCH ×4 (03:54→21:45)
[2021-09-07 05:48] LABS: Basophils # 0.1 10*3/uL (0.0-0.2); Basophils % 0.7 % (0.0-0.8); Eosinophils # 0.1 10*3/uL (0.0-0.87); Eosinophils % 0.6 % (0.00-10.9); Hematocrit 30.2 VOL% (35.7-47.0); Hemoglobin 9.5 GM/DL (12.0-16.0); Immature Granulocytes % 8.3 %; Immature Granulocytes Absolute 1.06 #; Lymphocytes # 2.8 10*3/uL (1.4-4.0); Lymphocytes % 22.2 % (21.3-54.2); Mean Corpuscular HGB Conc 31.5 GM/DL (32-36); Mean Corpuscular Volume 94.1 FL (87-102); Mean Platelet Volume 9.8 FL (9.6-12.0); Monocytes # 2.1 10*3/uL (0.11-0.8); Monocytes % 16.2 % (1.7-12.7); NRBC # 0.04 10*3/uL; Platelet Count 533 T/CUMM (130-400); Red Blood Count 3.21 MC/CUMM (3.8-5.5); Red Cell Distribution Width 17.7 % (9.3-17.3); White Blood Count 12.7 T/CUMM (4-12)
[2021-09-07 05:58] LABS: Alanine Aminotransferase 109 U/L (13-56); Albumin 2.4 G/DL (3.4-5.0); Alkaline Phosphatase 139 U/L (45-117); Aspartate Amino Transferase 152 U/L (0-37); Bilirubin,Total < 0.39 MG/DL (0.20-1.00); Blood Urea Nitrogen 20 MG/DL (7-18); Calcium 8.6 MG/DL (8.5-10.1); Carbon Dioxide 31 MMOL/L (21-32); Chloride 96 MMOL/L (98-107); Estimated Glom Filtration Rate 71 ML/MIN; Glucose 109 MG/DL (74-106); Osmolality,Calculated 269.4 MOS/KG (273-304); Potassium 4.1 MMOL/L (3.5-5.1); Sodium 133 MMOL/L (136-145); Total Protein 6.5 G/DL (6.4-8.2)
[2021-09-07 06:25] LABS: Band Neutrophils 2 % (0-10); Eosinophils 1 % (0-10); Hypochromia Slight; Lymphocytes 25 % (20-55); Metamyelocytes 2 %; Microcytosis 1+; Myelocytes 2 %; Polychromasia Slight; Total Cells Counted 100
[2021-09-07 06:26] LABS: Platelet Estimate Increased
[2021-09-07] MEDS: SODIUM CHLORIDE 0.45% 1,000 ML IV SCH ×2 (07:21→17:00)
[2021-09-07] MEDS: ONDANSETRON 4 MG/2 ML VIAL IV SCH ×3 (07:23→17:12)
[2021-09-07] MEDS ORDERED: PHENOL 1.4% THROAT SPRAY 177 ML BOTTLE PO PRN (09:11)
[2021-09-07] MEDS: POTASSIUM CHLORIDE 20 MEQ TABLET PO SCH (10:27)
[2021-09-07] MEDS: GABAPENTIN 300 MG CAPSULE PO SCH ×2 (10:27→22:34)
[2021-09-07] MEDS: DOCUSATE SODIUM 100 MG CAPSULE PO SCH ×2 (10:27→22:33)
[2021-09-07] MEDS: PANTOPRAZOLE 40 MG VIAL IV SCH ×2 (10:44→21:40)
[2021-09-07] MEDS: FLUCONAZOLE INJ 200 MG/100 ML PREMIX IV SCH (11:52)
[2021-09-07] MEDS: FAT EMULSION 20% 250 ML IV SCH (18:35)
[2021-09-07] MEDS: MANGANESE IV SCH (18:54)
[2021-09-07] MEDS: [UNRECOGNIZED DRUG - OTHER] IV SCH (18:54)
[2021-09-07] MEDS: COPPER IV SCH (18:54)
[2021-09-07] MEDS: ZINC IV SCH (18:54)
[2021-09-07] MEDS: MULTIVITAMIN IV SCH (18:54)
[2021-09-07] MEDS: SELENIUM IV SCH (18:54)
[2021-09-07] MEDS: diphenhydrAMINE 50 MG/1 ML VIAL IV PRN (21:42)
[2021-09-08] MEDS: METOCLOPRAMIDE 10 MG/2 ML VIAL IV SCH ×4 (04:45→21:33)
[2021-09-08 05:02] LABS: Basophils # 0.1 10*3/uL (0.0-0.2); Basophils % 0.7 % (0.0-0.8); Eosinophils # 0.1 10*3/uL (0.0-0.87); Eosinophils % 0.8 % (0.00-10.9); Hematocrit 29.3 VOL% (35.7-47.0); Hemoglobin 9.5 GM/DL (12.0-16.0); Immature Granulocytes % 6.4 %; Immature Granulocytes Absolute 0.75 #; Lymphocytes # 2.2 10*3/uL (1.4-4.0); Lymphocytes % 18.6 % (21.3-54.2); Mean Corpuscular HGB Conc 32.4 GM/DL (32-36); Mean Corpuscular Volume 94.8 FL (87-102); Mean Platelet Volume 9.8 FL (9.6-12.0); Monocytes # 1.9 10*3/uL (0.11-0.8); Monocytes % 15.9 % (1.7-12.7); NRBC # 0.02 10*3/uL; Neutrophils % 57.6 % (38.7-73.9); Platelet Count 587 T/CUMM (130-400); Red Blood Count 3.09 MC/CUMM (3.8-5.5); Red Cell Distribution Width 18.2 % (9.3-17.3); White Blood Count 11.8 T/CUMM (4-12)
[2021-09-08 05:20] LABS: Alanine Aminotransferase 120 U/L (13-56); Albumin 2.3 G/DL (3.4-5.0); Alkaline Phosphatase 150 U/L (45-117); Aspartate Amino Transferase 149 U/L (0-37); Bilirubin,Total < 0.39 MG/DL (0.20-1.00); Blood Urea Nitrogen 18 MG/DL (7-18); Calcium 8.4 MG/DL (8.5-10.1); Carbon Dioxide 29 MMOL/L (21-32); Chloride 98 MMOL/L (98-107); Estimated Glom Filtration Rate 84 ML/MIN; Glucose 117 MG/DL (74-106); Osmolality,Calculated 266.5 MOS/KG (273-304); Sodium 132 MMOL/L (136-145); Total Protein 6.5 G/DL (6.4-8.2)
[2021-09-08 05:30] LABS: Band Neutrophils 1 % (0-10); Eosinophils 3 % (0-10); Hypochromia 1+; Lymphocytes 24 % (20-55); Microcytosis 1+; Platelet Estimate Adequate; Total Cells Counted 100
[2021-09-08] MEDS: SODIUM CHLORIDE 0.45% 1,000 ML IV SCH ×3 (07:31→16:30)
[2021-09-08] MEDS: PANTOPRAZOLE 40 MG VIAL IV SCH ×2 (09:09→21:30)
[2021-09-08] MEDS: ONDANSETRON 4 MG/2 ML VIAL IV SCH ×3 (09:12→16:10)
[2021-09-08] MEDS: POTASSIUM CHLORIDE 20 MEQ TABLET PO SCH (09:14)
[2021-09-08] MEDS: DOCUSATE SODIUM 100 MG CAPSULE PO SCH ×2 (09:14→22:34)
[2021-09-08] MEDS: GABAPENTIN 300 MG CAPSULE PO SCH ×2 (09:15→22:35)
[2021-09-08] MEDS: FAT EMULSION 20% 250 ML IV SCH (16:10)
[2021-09-08] MEDS: [UNRECOGNIZED DRUG - OTHER] IV SCH (17:50)
[2021-09-08] MEDS: SELENIUM IV SCH (17:50)
[2021-09-08] MEDS: ZINC IV SCH (17:50)
[2021-09-08] MEDS: MANGANESE IV SCH (17:50)
[2021-09-08] MEDS: COPPER IV SCH (17:50)
[2021-09-08] MEDS: MULTIVITAMIN IV SCH (17:50)
[2021-09-08] MEDS: diphenhydrAMINE 50 MG/1 ML VIAL IV PRN (21:37)
[2021-09-09] MEDS: METOCLOPRAMIDE 10 MG/2 ML VIAL IV SCH ×4 (04:59→21:05)
[2021-09-09 05:43] LABS: Basophils # 0.1 10*3/uL (0.0-0.2); Basophils % 0.9 % (0.0-0.8); Eosinophils # 0.1 10*3/uL (0.0-0.87); Eosinophils % 0.7 % (0.00-10.9); Hematocrit 29.4 VOL% (35.7-47.0); Hemoglobin 9.4 GM/DL (12.0-16.0); Immature Granulocytes % 4.6 %; Immature Granulocytes Absolute 0.57 #; Lymphocytes # 2.2 10*3/uL (1.4-4.0); Lymphocytes % 17.6 % (21.3-54.2); Mean Corpuscular Volume 95.1 FL (87-102); Mean Platelet Volume 9.8 FL (9.6-12.0); Monocytes # 1.7 10*3/uL (0.11-0.8); Monocytes % 13.7 % (1.7-12.7); Neutrophils % 62.5 % (38.7-73.9); Platelet Count 644 T/CUMM (130-400); Red Blood Count 3.09 MC/CUMM (3.8-5.5); Red Cell Distribution Width 18.2 % (9.3-17.3); White Blood Count 12.3 T/CUMM (4-12)
[2021-09-09 06:07] LABS: Anisocytosis Slight; Lymphocytes 15 % (20-55); Platelet Estimate Increased; Total Cells Counted 100
[2021-09-09] MEDS: SODIUM CHLORIDE 0.45% 1,000 ML IV SCH ×2 (07:52→10:19)
[2021-09-09] MEDS ORDERED: MIDAZOLAM 2 MG/2 ML VIAL ONE (08:51)
[2021-09-09] MEDS ORDERED: propofoL 200 MG/20 ML VIAL IV ONE (08:51)
[2021-09-09] MEDS ORDERED: LIDOCAINE 2% 5 ML VIAL ONE (08:51)
[2021-09-09] MEDS ORDERED: fentaNYL 100 MCG/2 ML VIAL ONE (08:51)
[2021-09-09] MEDS ORDERED: ONDANSETRON 4 MG/2 ML VIAL ONE ×2 (08:51→09:16)
[2021-09-09] MEDS ORDERED: BUPIVACAINE MPF 0.25% 30 ML VIAL ONE (08:57)
[2021-09-09] MEDS ORDERED: LIDOCAINE 1%/EPI INJ 20 ML VIAL ONE (08:58)
[2021-09-09] MEDS: ONDANSETRON 4 MG/2 ML VIAL IV SCH ×3 (09:06→17:01)
[2021-09-09] MEDS ORDERED: SUCCINYLCHOLINE 200 MG/10 ML VIAL ONE (09:13)
[2021-09-09] MEDS ORDERED: PHENYLEPHRINE 1 MG/10 ML SYRINGE IV ONE (09:13)
[2021-09-09] MEDS ORDERED: DEXAMETHASONE 4 MG/1 ML VIAL ONE ×2 (09:16)
[2021-09-09] MEDS ORDERED: ALBUMIN 5% 12.5 GM/250 ML VIAL IV ONE (09:22)
[2021-09-09] MEDS ORDERED: ceFAZolin 1,000 MG VIAL ONE (09:27)
[2021-09-09] MEDS ORDERED: TISSUE ADHESIVE 1 EACH APPLICATOR TOP ONE (09:42)
[2021-09-09] MEDS ORDERED: SUGAMMADEX 200 MG/2 ML VIAL IV ONE (09:43)
[2021-09-09] MEDS ORDERED: SEVOFLURANE 1 UNIT/15 MINUTE INH ONE (09:50)
[2021-09-09] MEDS ORDERED: PROMETHAZINE INJ 25 MG in SODIUM CHLORIDE 0.9% 50 ML IV PRN (10:06)
[2021-09-09] MEDS ORDERED: MEPERIDINE 25 MG/1 ML VIAL IV PRN (10:06)
[2021-09-09] MEDS ORDERED: HYDROmorphone 1 MG/1 ML SYRINGE IV PRN (10:06)
[2021-09-09] MEDS ORDERED: diphenhydrAMINE 50 MG/1 ML VIAL IV PRN (10:06)
[2021-09-09] MEDS ORDERED: ONDANSETRON 4 MG/2 ML VIAL IV PRN (10:06)
[2021-09-09] MEDS: MEPERIDINE 50 MG/1 ML VIAL IV PRN ×2 (10:10→10:30)
[2021-09-09] MEDS ORDERED: MEPERIDINE 25 MG/1 ML VIAL ONE (10:29)
[2021-09-09] MEDS: POTASSIUM CHLORIDE 20 MEQ TABLET PO SCH (12:27)
[2021-09-09] MEDS: DOCUSATE SODIUM 100 MG CAPSULE PO SCH ×2 (12:27→21:07)
[2021-09-09] MEDS: GABAPENTIN 300 MG CAPSULE PO SCH ×2 (12:27→21:07)
[2021-09-09] MEDS: PANTOPRAZOLE 40 MG VIAL IV SCH ×2 (12:47→21:06)
[2021-09-09] MEDS: FAT EMULSION 20% 250 ML IV SCH (13:37)
[2021-09-09 16:25] LABS: Calcium 8.4 MG/DL (8.5-10.1); Osmolality,Calculated 264.5 MOS/KG (273-304); Phosphorous 4.1 MG/DL (2.5-4.9); Potassium 4.3 MMOL/L (3.5-5.1)
[2021-09-09] MEDS: MANGANESE IV SCH (17:02)
[2021-09-09] MEDS: MULTIVITAMIN IV SCH (17:02)
[2021-09-09] MEDS: [UNRECOGNIZED DRUG - OTHER] IV SCH (17:02)
[2021-09-09] MEDS: SELENIUM IV SCH (17:02)
[2021-09-09] MEDS: ZINC IV SCH (17:02)
[2021-09-09] MEDS: COPPER IV SCH (17:02)
[2021-09-09] MEDS: diphenhydrAMINE 50 MG/1 ML VIAL IV PRN (21:05)
[2021-09-10] MEDS: METOCLOPRAMIDE 10 MG/2 ML VIAL IV SCH ×4 (04:26→21:22)
[2021-09-10] MEDS: ONDANSETRON 4 MG/2 ML VIAL IV SCH ×3 (06:30→16:33)
[2021-09-10] MEDS: PANTOPRAZOLE 40 MG VIAL IV SCH ×2 (09:33→21:22)
[2021-09-10] MEDS ORDERED: DEXAMETHASONE 10 MG/1 ML VIAL IV ONE (10:30)
[2021-09-10] MEDS ORDERED: PALONOSETRON 0.25 MG/5 ML VIAL IV ONE (10:30)
[2021-09-10] MEDS: GABAPENTIN 300 MG CAPSULE PO SCH ×2 (10:31→21:19)
[2021-09-10] MEDS: DOCUSATE SODIUM 100 MG CAPSULE PO SCH ×2 (10:31→21:17)
[2021-09-10] MEDS ORDERED: SODIUM CHLORIDE 0.9% IV ONE (11:00)
[2021-09-10] MEDS ORDERED: GEMCITABINE IV ONE (11:00)
[2021-09-10] MEDS: FAT EMULSION 20% 250 ML IV SCH (13:39)
[2021-09-10] MEDS: [UNRECOGNIZED DRUG - OTHER] IV SCH (16:34)
[2021-09-10] MEDS: MANGANESE IV SCH (16:34)
[2021-09-10] MEDS: ZINC IV SCH (16:34)
[2021-09-10] MEDS: COPPER IV SCH (16:34)
[2021-09-10] MEDS: MULTIVITAMIN IV SCH (16:34)
[2021-09-10] MEDS: SELENIUM IV SCH (16:34)
[2021-09-10] MEDS: diphenhydrAMINE 50 MG/1 ML VIAL IV PRN (21:23)
[2021-09-11 05:24] LABS: Basophils % 0.1 % (0.0-0.8); Hematocrit 25.5 VOL% (35.7-47.0); Hemoglobin 8.1 GM/DL (12.0-16.0); Immature Granulocytes % 0.8 %; Immature Granulocytes Absolute 0.09 #; Lymphocytes # 1.1 10*3/uL (1.4-4.0); Lymphocytes % 9.4 % (21.3-54.2); Mean Corpuscular HGB Conc 31.8 GM/DL (32-36); Mean Corpuscular Volume 95.9 FL (87-102); Mean Platelet Volume 9.6 FL (9.6-12.0); Monocytes # 1.1 10*3/uL (0.11-0.8); Monocytes % 9.6 % (1.7-12.7); Neutrophils % 80.1 % (38.7-73.9); Platelet Count 614 T/CUMM (130-400); Red Blood Count 2.66 MC/CUMM (3.8-5.5); Red Cell Distribution Width 18.4 % (9.3-17.3); White Blood Count 11.6 T/CUMM (4-12)
[2021-09-11 05:36] LABS: Calcium 8.2 MG/DL (8.5-10.1)
[2021-09-11] MEDS: METOCLOPRAMIDE 10 MG/2 ML VIAL IV SCH ×4 (07:19→21:24)
[2021-09-11] MEDS: ONDANSETRON 4 MG/2 ML VIAL IV SCH ×3 (07:19→16:19)
[2021-09-11] MEDS: PANTOPRAZOLE 40 MG VIAL IV SCH ×2 (08:16→21:22)
[2021-09-11] MEDS: DOCUSATE SODIUM 100 MG CAPSULE PO SCH ×2 (08:16→20:10)
[2021-09-11] MEDS: GABAPENTIN 300 MG CAPSULE PO SCH ×2 (08:16→20:10)
[2021-09-11] MEDS: FAT EMULSION 20% 250 ML IV SCH (14:39)
[2021-09-11] MEDS: COPPER IV SCH (16:19)
[2021-09-11] MEDS: MANGANESE IV SCH (16:19)
[2021-09-11] MEDS: [UNRECOGNIZED DRUG - OTHER] IV SCH (16:19)
[2021-09-11] MEDS: MULTIVITAMIN IV SCH (16:19)
[2021-09-11] MEDS: SELENIUM IV SCH (16:19)
[2021-09-11] MEDS: ZINC IV SCH (16:19)
[2021-09-11] MEDS: diphenhydrAMINE 50 MG/1 ML VIAL IV PRN (21:25)
[2021-09-12] MEDS: METOCLOPRAMIDE 10 MG/2 ML VIAL IV SCH ×4 (04:16→21:00)
[2021-09-12 05:54] LABS: Basophils % 0.4 % (0.0-0.8); Eosinophils % 0.1 % (0.00-10.9); Hematocrit 26.9 VOL% (35.7-47.0); Hemoglobin 8.6 GM/DL (12.0-16.0); Immature Granulocytes % 0.4 %; Immature Granulocytes Absolute 0.03 #; Lymphocytes # 1.3 10*3/uL (1.4-4.0); Lymphocytes % 16.2 % (21.3-54.2); Mean Corpuscular Volume 93.7 FL (87-102); Mean Platelet Volume 9.4 FL (9.6-12.0); Monocytes # 0.7 10*3/uL (0.11-0.8); Neutrophils % 74.9 % (38.7-73.9); Platelet Count 572 T/CUMM (130-400); Red Blood Count 2.87 MC/CUMM (3.8-5.5); Red Cell Distribution Width 18.5 % (9.3-17.3); White Blood Count 8.1 T/CUMM (4-12)
[2021-09-12] MEDS: ONDANSETRON 4 MG/2 ML VIAL IV SCH ×3 (08:10→17:01)
[2021-09-12] MEDS: PANTOPRAZOLE 40 MG VIAL IV SCH ×2 (10:12→20:52)
[2021-09-12] MEDS: DOCUSATE SODIUM 100 MG CAPSULE PO SCH ×2 (10:16→21:05)
[2021-09-12] MEDS: GABAPENTIN 300 MG CAPSULE PO SCH ×2 (10:17→21:05)
[2021-09-12] MEDS: FAT EMULSION 20% 250 ML IV SCH (13:59)
[2021-09-12] MEDS: diphenhydrAMINE 50 MG/1 ML VIAL IV PRN (20:52)
[2021-09-13] MEDS: METOCLOPRAMIDE 10 MG/2 ML VIAL IV SCH ×4 (04:07→21:42)
[2021-09-13] MEDS: SELENIUM IV SCH ×2 (05:01→16:39)
[2021-09-13] MEDS: COPPER IV SCH ×2 (05:01→16:39)
[2021-09-13] MEDS: MANGANESE IV SCH ×2 (05:01→16:39)
[2021-09-13] MEDS: [UNRECOGNIZED DRUG - OTHER] IV SCH ×2 (05:01→16:39)
[2021-09-13] MEDS: MULTIVITAMIN IV SCH ×2 (05:01→16:39)
[2021-09-13] MEDS: ZINC IV SCH ×2 (05:01→16:39)
[2021-09-13] MEDS: ONDANSETRON 4 MG/2 ML VIAL IV SCH ×3 (09:38→15:33)
[2021-09-13] MEDS: PANTOPRAZOLE 40 MG VIAL IV SCH ×2 (09:40→21:42)
[2021-09-13] MEDS: GABAPENTIN 300 MG CAPSULE PO SCH ×2 (09:42→21:43)
[2021-09-13] MEDS: DOCUSATE SODIUM 100 MG CAPSULE PO SCH ×2 (09:43→21:42)
[2021-09-13] MEDS: FAT EMULSION 20% 250 ML IV SCH (13:04)
[2021-09-13] MEDS: diphenhydrAMINE 50 MG/1 ML VIAL IV PRN (21:42)
[2021-09-14] MEDS: METOCLOPRAMIDE 10 MG/2 ML VIAL IV SCH ×2 (05:04→09:51)
[2021-09-14 05:35] LABS: Basophils % 0.5 % (0.0-0.8); Eosinophils # 0.1 10*3/uL (0.0-0.87); Eosinophils % 0.9 % (0.00-10.9); Hematocrit 25.3 VOL% (35.7-47.0); Immature Granulocytes % 0.4 %; Immature Granulocytes Absolute 0.03 #; Lymphocytes # 1.3 10*3/uL (1.4-4.0); Lymphocytes % 16.9 % (21.3-54.2); Mean Corpuscular HGB Conc 31.6 GM/DL (32-36); Mean Corpuscular Volume 96.2 FL (87-102); Mean Platelet Volume 9.3 FL (9.6-12.0); Monocytes # 0.1 10*3/uL (0.11-0.8); Monocytes % 1.5 % (1.7-12.7); Neutrophils % 79.8 % (38.7-73.9); Platelet Count 446 T/CUMM (130-400); Red Blood Count 2.63 MC/CUMM (3.8-5.5); Red Cell Distribution Width 18.3 % (9.3-17.3); White Blood Count 7.4 T/CUMM (4-12)
[2021-09-14 06:06] LABS: Hypochromia Slight; Lymphocytes 15 % (20-55); Microcytosis 1+; Platelet Estimate Adequate; Total Cells Counted 100
[2021-09-14 06:07] LABS: Calcium 8.6 MG/DL (8.5-10.1); Osmolality,Calculated 273.1 MOS/KG (273-304); Phosphorous 3.5 MG/DL (2.5-4.9)
[2021-09-14] MEDS: DOCUSATE SODIUM 100 MG CAPSULE PO SCH (09:39)
[2021-09-14] MEDS: GABAPENTIN 300 MG CAPSULE PO SCH (09:39)
[2021-09-14] MEDS: PANTOPRAZOLE 40 MG VIAL IV SCH (09:45)
[2021-09-14] MEDS: ONDANSETRON 4 MG/2 ML VIAL IV SCH ×2 (09:49→13:04)
[2021-09-14 13:39] VITALS: BP 107/71
== END 2021-09-14 14:01 | disposition home health service (06) | DRG 803 ==
LOC: N.ED 15:00 → SUATTDRO 18:01 → N.EDINP 18:01 → N.TELES 18:06
PROVIDERS: ADMIT Hospitalist; ATTEND Internal Medicine